=== PATIENT | female | born 1960 | race Caucasian/White ===

== ENCOUNTER 2022-07-18 18:26 | Emergency (ER) | payer BC ==
[2022-07-18] MEDS ORDERED: Orphenadrine 60 MG/2 ML Inj IM ONE (19:14)
[2022-07-18] MEDS ORDERED: Acetaminophen/oxyCODONE 325-5 MG Tab PO ONE (19:14)
[2022-07-18 19:58] LABS: ANION GAP 13.6 mEq/L (7-13); CHLORIDE,CL 103 mmol/L (98-107); SODIUM,NA 138 mmol/L (136-145)
[2022-07-18 20:15] LABS: ESTIMATED GFR 74 mL/min (>=60)
[2022-07-18] MEDS ORDERED: Acetaminophen/HYDROcodone 325-5 MG Tab ONE (20:41)
[2022-07-18] MEDS ORDERED: Cyclobenzaprine 10 MG Tab ONE (20:42)
== END 2022-07-18 20:53 | disposition home or self-care (01) ==
LOC: DL.ED 18:26
DX: M54.32 Sciatica, left side (principal); M62.838 Other muscle spasm
CPT/HCPCS: 36415; 80053; 85025; 85379; 85610; 86140; 96372; 99283; A9270; J2360